=== PATIENT | male | born 1960 | race African-American/Black ===

== ENCOUNTER 2024-07-01 17:35 | Emergency (ER) | payer OTHER, SELFPAY ==
[2024-07-01 17:42] VITALS: BP 179/86; PULSE 89; TEMP 36.8; O2SAT 99; BMI 24.4
--- NOTE | 2024-07-01 17:52 | XR_ITS ---
[facility] [id number] Patient Name: JEIMY DA SILVA MRN: [id number] date: 1960 Sex: M Assigned Patient Location: ER Current Patient Location: ER Accession/Order Number: [id number] Exam Date: 07/01/2024 18:00 Report Date: 07/01/2024 19:10 At the request of: JORDY SCHNEIDER Procedure: XR hip RT 2V w/ pelvis XR hip RT 2V w/ pelvis 07/01/2024 6:00 PM EDT CLINICAL INDICATION: Pain COMPARISON: CT abdomen and pelvis 05/05/2014 TECHNIQUE: 3 views of the right hip. FINDINGS: The bones are intact. The alignment is anatomic. There are degenerative changes of the joints. The soft tissues are grossly unremarkable. XR/XR hip RT 2V w/ pelvis IMPRESSION: No acute osseous abnormality. Electronically authenticated by: CLAUDE MIOSE Date: 07/01/2024 19:10
--- NOTE | 2024-07-01 17:52 | ED.LOWEXI1 ---
HPI HPI - Extremity Injury (Lower) General Chief Complaint: Extremity Problem, Nontraumatic Stated Complaint: ABD PAIN Time Seen by Provider: 07/01/24 17:45 Source: patient Mode of arrival: walk-in Limitations: no limitations History of Present Illness HPI Narrative: 63-year-old male presents to the emergency department with complaint of right thigh, groin pain. Onset about 2 weeks ago. Pain has been fairly persistent. Patient mainly having the pain with certain movements above his leg or palpation. Does work in a job where he stands around a lot. Denies any specific injury, blunt trauma, motor or sensory changes, paresthesias, swelling. Quality: Like a muscle pain Severity:?Mild Timing:?As above, intermittent, waxing and waning Context: Normal setting and activity? Modifying factors:?Worse with ambulating, extension of the hip Associated symptoms: None Related Data Allergies Allergy/AdvReac Type Severity Reaction Status Date / Time No Known Drug Allergies Allergy Verified 07/01/24 17:42 Opioid HPI Opioid Management Most Recent Pain and Opioid Data: Last Pain Scale 4 07/01/24 17:46 Review of Systems ROS Constitutional Denies: fatigue or malaise Musculoskeletal Reports: extremity pain and joint pain; Denies: extremity swelling or joint swelling Neurological Denies: numbness in extremities or weakness in extremities Endocrine Denies: fatigue Exam Constitutional Vital Signs, click to edit/add: Last Vital Signs Temp 98.2 F 07/01/24 17:42 Pulse 89 07/01/24 17:42 Resp 18 07/01/24 17:42 BP 179/86 H 07/01/24 17:42 Pulse Ox 99 07/01/24 17:42 O2 Del Method Room Air 07/01/24 17:42 Documenting provider has reviewed patient's vital signs: yes Common normals: no apparent distress, oriented x3 and alert General appearance: well developed Cardio Peripheral pulses: dorsalis pedis pulses present bilateral 2+ Extremity Other: Right hip: +tenderness to the right inguinal region only.? No tenderness to the lateral aspect of the hip, calf, medial thigh. No swelling when compared to the opposing extremity.? No ecchymosis, discoloration, crepitus, deformity, instability, warmth.? ROM full. He currently has no discomfort with flexion of the hip, but states his pain is currently controlled with Motrin. When it is not, hip flexion causes him pain. He also gets some pain when he is walking with hip extension. Strength 5/5 Neuro Common normals: oriented x3, no focal motor deficits and no sensory deficits noted Sensorium/orientation: alert Psych Common normals: mental status grossly normal and thought process normal Thought process: normal thought process Course Vital Signs Vital signs: Vital Signs Temperature 98.2 F 07/01/24 17:42 Pulse Rate 89 07/01/24 17:42 Respiratory Rate 18 07/01/24 17:42 Blood Pressure 179/86 H 07/01/24 17:42 Pulse Oximetry 99 07/01/24 17:42 Oxygen Delivery Method Room Air 07/01/24 17:42 Temperature 98.2 F 07/01/24 17:42 Pulse Rate 89 07/01/24 17:42 Respiratory Rate 18 07/01/24 17:42 Blood Pressure 179/86 H 07/01/24 17:42 Pulse Oximetry 99 07/01/24 17:42 Oxygen Delivery Method Room Air 07/01/24 17:42 MDM - Extremity Injury (Lower) MDM Narrative Medical decision making narrative: This is a pleasant 63-year-old male who presents to the emergency department with complaint of right hip pain. Has been having pain over the past couple weeks. Has not necessarily been getting worse, but has been lingering. Noticing pain with certain movements. Pain is controlled when he takes Motrin. On arrival, afebrile, vital signs are stable. On exam, nontoxic, well-appearing patient in no distress. He has some mild inguinal tenderness. His pain is currently controlled with Motrin and does not report much pain with flexion, abduction, abduction, rotation. However, he states when his pain is not being controlled Motrin, he has increased pain with flexion of the hip and extension of the hip. Otherwise, neurovascularly intact. Right hip x-ray imaging, per radiologist reveals no acute findings Favor hip flexor strain Fracture less likely based on imaging DVT less likely based on patient not having any swelling, tenderness to the medial thigh, calf. No discoloration. Disposition ? The patient was discharged. Plan: Patient will be discharged to home. Condition at time of disposition: stable [place] wrap applied. Advised to continue 600 mg of Motrin. Advised to follow up with Ortho. Referral information placed on patient's discharge papers. Advised to return for any worsening and/or development of new, concerning signs or symptoms PLEASE NOTE: Portions of the medical record may have been produced using electronic manager delivery and may contain errors with respect to translation of words which may not have been identified prior to finalization of the chart. Medical Records Attestation: I reviewed the patient's medical records. Imaging Data Right Hip: Radiologist's impression: ITS Impressions Hip/Pelvis X-Ray 07/01/24 17:52 IMPRESSION: No acute osseous abnormality. Electronically authenticated by: CLAUDE MOISE Date: 07/01/2024 19:10 Discharge Plan Discharge Stand Alone Forms: Portal Instructions Chief Complaint: Extremity Problem, Nontraumatic Clinical Impression: Acute pain of right hip Strain of flexor muscle of right hip Qualifiers: Encounter type: initial encounter Qualified Code(s): S76.011A - Strain of muscle, fascia and tendon of right hip, initial encounter Patient Disposition: Home, Self-Care Time of Disposition Decision: 19:21 Condition: Good Mode of Transportation: Private Vehicle Print Language: Greenlandic Instructions: Groin Strain (ED) Referrals: Ha Chen MD [Physician] - 1 week Discharge Date/Time: 07/01/24 19:43
== END 2024-07-01 19:43 | disposition home or self-care (01) ==
PROVIDERS: Emergency Provider Emergency Medicine
DX: S76.011A Strain of muscle, fascia and tendon of right hip, initial encounter (principal); M25.551 Pain in right hip; X58.XXXA Exposure to other specified factors, initial encounter
CPT/HCPCS: 73502; 99283